=== PATIENT | female | born 1990 | race Caucasian/White ===

== ENCOUNTER 2016-07-30 00:59 | Emergency (ER) | payer OTHER ==
[~2016-07-30] VITALS: Ht 157.5 cm; Wt 83.9 kg
[~2016-07-30 00:59] MED LIST: BCPILLS PO; PRENTAB26 PO; SERT50TA PO
[2016-07-30 01:00] VITALS: TEMP 37; Ht 157.5 cm; Wt 83.9 kg
[2016-07-30] MEDS ORDERED: AMOX875T PO (01:25)
[2016-07-30] MEDS ORDERED: OXYC1TAB3 PO (01:25)
[2016-07-30] MEDS ORDERED: AMOXICIL/CLAVU 875MG HOME PACK PO ONE (01:30)
[2016-07-30] MEDS ORDERED: OXYCODONE IR HOME PACK PO ONE (01:30)
[2016-07-30 01:44] VITALS: BP 145/103; PULSE 82; O2SAT 99
--- NOTE | 2016-07-30 01:49 | EMERGENCY ROOM VISIT NOTE ---
History First contact with patient: 01:04 Chief Complaint: EAR PAIN Stated Complaint: PAIN IN EAR AND MOUTH History of Present Illness The patient is a 26 year old female who presents to the Emergency Room with complaints of right-sided dental pain with ear and jaw pain for the past few days. Patient states she knows she needs some teeth pulled. She describes the pain as throbbing, ranging in severity currently 8 out of 10. Nothing makes it better or worse. Patient denies headache, neck status, sore throat, fever, chills, cough, congestion, chest pain, dyspnea. Tetanus is current. She does smoke. No drugs. Review of Systems See HPI for pertinent positives & negatives. A total of 10 systems reviewed and were otherwise negative. 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) (3) Tobacco Use Disorder Surgical Problems: (1) History of foot surgery Family History FH: hypertension Social History Smoking Status: Current Every Day Smoker Alcohol Use: occasionally Drug Use: none Marital Status: Housing Status: lives with family Occupation Status: unemployed Current/Historical Medications Scheduled Amoxicillin & Pot Clavulanate (Augmentin 875-125 mg), 1 TAB PO BID Control Pills ( Control Pills), 1 TAB PO DAILY Scheduled PRN Oxycodone Immediate Rel Tab (Roxicodone Ir), 1-2 TAB PO Q4H PRN for Severe Pain Allergies Coded Allergies: No Known Allergies (Unverified , 07/30/16) Physical Exam Vital Signs Date Time Temp Pulse Resp B/P Pulse Ox O2 Delivery O2 Flow Rate FiO2 07/30/16 01:44 82 18 145/103 99 Room Air 07/30/16 01:00 37.0 100 18 173/86 99 Room Air Physical Exam VITALS: Vitals are noted on the nurse's note and reviewed by myself. Vital signs hypertensive. GENERAL: Pleasant female, in no acute distress, nondiaphoretic, well-developed well-nourished. SKIN: The skin was without rashes, erythema, edema, or bruising. There is no tenting of the skin. Capillary reflex less than 2 seconds. HEAD: Normocephalic atraumatic. No facial swelling EARS: External auditory canals clear, tympanic membranes pearly raphael without erythema or effusion bilaterally. EYES: Pupils equal round and reactive to light and accommodation. Conjunctivae without injection, sclerae without icterus. Extraocular movements intact. NOSE: Patent, turbinates without inflammation or discharge. No sinus tenderness. MOUTH: Mucous membranes moist. Pharynx without erythema or exudate. Uvula midline. Airway patent. Tongue does not deviate. Dental exam: Right upper second molar with extensive dental decay and first molar with extensive dental decay with mild erythema and edema to the gumline with no palpable abscess. No signs of Harish angina. NECK: Supple without nuchal rigidity. No lymphadenopathy. No thyromegaly. Cervical spine is nontender. No JVD. No meningeal signs HEART: Regular rate and rhythm without murmurs gallops or rubs. LUNGS: Clear to auscultation bilaterally without wheezes, rales or rhonchi. No dullness to percussion. No retractions or accessory muscle use. ABDOMEN: Positive bowel sounds x 4. Normal tympanic percussion. Soft, nontender, without masses or organomegaly. Randall sign negative. No guarding or rebound tenderness. MUSCULOSKELETAL: No muscle atrophy, erythema, or edema noted. NEURO: Patient was alert and oriented to person place and time. Normal sensation to light and sharp touch. No focal neurological deficits. Medical Decision & Procedures Medications Administered Medications (Trade) Dose Ordered Sig/Doyle Route Start Time Stop Time Status Last Admin Dose Admin Amoxicillin/ Clavulanate Potassium (Augmentin 875MG Home Pack) 1 homepack UD ONCE PO 07/30/16 01:30 07/30/16 01:31 DC 07/30/16 01:40 1 HOMEPACK Oxycodone HCl (Roxicodone Immediate Rel 5MG Home Pack) 1 homepack UD ONCE PO 07/30/16 01:30 07/30/16 01:31 DC 07/30/16 01:41 1 HOMEPACK ED Course Prior records reviewed and summarized as above. Triage Nursing notes reviewed. Additional history obtained from family The patient's history was concerning for right-sided facial pain and dental pain. Differential diagnosis: Etiologies such as cellulitis, abscess, gingivitis, Harish's angina, infection, as well as others were entertained.. Physical examination: The physical examination was consistent with dental pain from infected dental caries ER treatment provided: Augmentin, OxyIR On reassessment the patient felt better. Diagnostics interpreted by me: Deferred This appears to be infected dental caries. Patient had no palpable abscess but had extensive dental decay with erythematous and edematous gums. She was started on antibiotics. She was counseled on proper dental hygiene and encouraged to see an oral surgeon for extraction of the teeth. She had exposed roots. She had no signs of Harish angina. No signs of meningitis. She is advised to return to the ER immediately for facial swelling, fevers, worsening signs or symptoms or as needed. By the evaluation outlined above emergent etiologies such as abscess, Harish's angina as well as others were deemed relatively unlikely. The pt informed about the findings as listed above. All questions were answered and pleased with the treatment. Return instructions were outlined and the patient was discharged in stable condition. Outpatient prescription management: Augmentin, OxyIR Referral: The patient was referred to oral surgeon for follow-up in 2 to 3 days for a recheck of the current condition. Medical Decision As above [place] Drug Monitoring Program Search Results: patient reviewed within database, no issues identified Impression Primary Impression: Infected dental caries Additional Impression: dental pain Departure Information Dispostion Home / Self-Care Condition GOOD Prescriptions Oxycodone Immediate Rel Tab (ROXICODONE IR) 5 Mg Tab 1-2 TAB PO Q4H Y for Severe Pain, #15 TAB Prov: Yeimi Garcia PA-C 07/30/16 Amoxicillin & Pot Clavulanate (Augmentin 875-125 mg) 1 Tab Tab 1 TAB PO BID for 9 Days, #18 TAB Prov: Yeimi Garcia PA-C 07/30/16 Referrals Rex Mello D.D.S. Forms WORK / SCHOOL INSTRUCTIONS, HOME CARE DOCUMENTATION FORM, IMPORTANT VISIT INFORMATION Patient Instructions A Signature Page, My [facility], ED [facility] Additional Instructions Augmetin 875mg: Take one pill 2 times daily for 10 days for your infection. All antibiotics can cause diarrhea. If this occurs and you feel worse or it does not resolve in 1-2 days follow up with your doctor or return to the Emergency Department as this could be signs of serious underlying problems. Any medication can cause an allergic reaction, stop the pills immediately and return to the ER for rash, hives, breathing difficulties, or swelling. Oxycodone (OxyIR) 5mg: Take 1-2 pills every four hours for breakthrough pain. Avoid alcohol, operating machinery or dangerous equipment, working on ladders or roofs, DRIVING, or situations where being under the influence may be dangerous. It is recommended to use an [id number] stool softener such as Colace, 100mg twice daily while taking this medication to avoid constipation. Ibuprofen(Motrin, Advil) may be used for fever or pain. Use 600mg every six hours as needed. Take with food. Avoid using more than 2400mg in a 24 hour period. Do not use 2400mg per day for more than three consecutive days without physician direction. Prolonged inappropriate use can lead to stomach upset or ulcers. This medication can be taken if you need to drive, work, or perform activities which may be dangerous when taking narcotic pain medication. (AND/OR) Acetaminophen(Tylenol) may be used for fever or pain. Use 1000mg every six hours as needed. Avoid using more than 3000mg in a 24 hour period. This medication can be taken if you need to drive, work, or perform activities which may be dangerous when taking narcotic pain medication. [place] teeth twice a day, floss daily and do warm saltwater gargles 3 times a day. See am oral surgeon as soon as possible for definitive care for your dental problem. Return to ER sooner for facial swelling, fever, redness, worsening signs or symptoms or as needed. Problem Qualifiers
== END 2016-07-30 01:46 | disposition home or self-care (01) ==
LOC: C.EDB 00:59
DX: K02.9 Dental caries, unspecified (principal); K08.89 Other specified disorders of teeth and supporting structures; K04.7 Periapical abscess without sinus; J45.909 Unspecified asthma, uncomplicated; F17.200 Nicotine dependence, unspecified, uncomplicated